=== PATIENT | female | born 1980 | race Caucasian/White ===

== ENCOUNTER 2020-12-01 22:49 | Emergency (ER) | payer SELFPAY ==
[~2020-12-01] VITALS: Ht 165.1 cm; Wt 86.0 kg
[2020-12-02] MEDS ORDERED: LORAZEPAM 2MG/ML CPJ IV ONE (00:30)
[2020-12-02] MEDS ORDERED: ASPIRIN 325MG EC TABLET PO ONE (01:30)
[2020-12-02 01:41] LABS: BASOPHILS % 0.6 % (0.0-2.0); EOSINOPHILS % 1.7 % (0.0-5.0); HEMATOCRIT. 40.9 % (36.0-48.0); HEMOGLOBIN. 14.1 g/dL (12.0-16.0); LYMPHOCYTES % 28.1 % (20.0-50.0); MEAN CORPUSCULAR HEMOGLOBIN 29.4 pg (28.0-32.0); MEAN CORPUSCULAR VOLUME 85.3 fL (81.0-99.0); MEAN PLATELET VOLUME 8.6 fl (7.4-10.4); MONOCYTES % 8.9 % (2.0-8.0); NEUTROPHILS % 60.7 % (40.0-76.0); PLATELET 294 x1000/uL (130-400); RED CELL DISTRIBUTION WIDTH 13.1 % (11.6-14.6)
[2020-12-02 01:46] LABS: CHLORIDE 107 mEq/L (98-107)
[2020-12-02 01:49] LABS: ETHANOL BLOOD < 10 mg/dL; PARTIAL THROMBOPLASTIN TIME 25.1 sec (23.4-31.0); PROTHROMBIN TIME 10.7 sec (9.6-11.0)
[2020-12-02 01:52] LABS: LDL CHOLESTEROL 116 mg/dL (5-100)
[2020-12-02] MEDS ORDERED: IOHEXOL-350 100 ML BOTTLE ONE (02:18)
[2020-12-02 03:25] VITALS: BP 113/75
== END 2020-12-02 04:15 | disposition home or self-care (01) ==
LOC: ER 22:49
DX: F45.8 Other somatoform disorders (principal); F41.1 Generalized anxiety disorder; F43.0 Acute stress reaction
CPT/HCPCS: 36415; 70450; 70496; 70498; 71045; 80053; 80320; 82962; 83721; 84484; 85025; 85610; 85730; 96374; 99285; J2060; Q9967; G0480